=== PATIENT | female | born 1945 | race Caucasian/White ===

== ENCOUNTER 2017-08-04 13:16 | Outpatient (CLI) | payer MEDICARE, OTHER ==
--- NOTE | 2017-08-05 13:17 | PET ---
NUCLEAR MEDICINE FDG PET CT: (Positron Emission Tomography) DATE: 08/04/2017 HISTORY: A 72-year-old female with metastatic lymph node PT CT requested to monitor therapy for possible yanely nge in treatment. COMPARISON: 05/17/2016 TECHNIQUE: IV injection F-18 Fluorodeoxyglucose (FDG) dose: 10.6 mCi. PET and attenuation-correction CT performed from skull base to proximal thighs. FINDINGS: SUV (standard uptake value) numbers given are maximum SUV's: There is a new 2 x 1 cm right subpectoral hypermetabolic lymph node with an SUV of 6.8. Located posterior, inferior, and lateral to that, there is another new finding of a smaller, 1 cm ly mph node, which has greater FDG uptake than contralateral left lymph nodes, but has uptake of 2.5 (w hich is still below the somewhat arbitrary threshold of 3.0). This is at least moderately suspiciou s. The post surgical scar within the right breast is not hypermetabolic (SUV 1.7). Again noted is the left breast implant. There is no hypermetabolic activity within the thoracic cavity, neck, abdomina l cavity, or pelvic cavity, other than diffuse uptake throughout the colon. IMPRESSION: Evidence for new right subpectoral metastatic lymph node. ELVIN Horton POS: YVONNE
== END 2017-08-04 13:17 | disposition home or self-care (01) ==
LOC: PET 13:16
PROVIDERS: ATTEND Internal Medicine Hematology & Oncology
DX: C50.919 Malignant neoplasm of unspecified site of unspecified female breast (principal); C77.9 Secondary and unspecified malignant neoplasm of lymph node, unspecified
CPT/HCPCS: 78815; A9552

== ENCOUNTER 2018-04-01 11:45 | Outpatient (CLI) | payer MEDICARE, OTHER ==
--- NOTE | 2018-04-01 14:34 | PET ---
PET WITH CT SKULL TO MID THIGH: HISTORY: A 72-year-old female with bilateral breast cancer, left-sided in 1995 and right-sided in October 2015 . The patient had a right lumpectomy and a left mastectomy. Exam is requested for restaging. TECHNIQUE: PET scanning with CT attenuation correction is performed from the base of the brain through the proxi mal thighs following the intravenous administration of 10.4 mCi [id number] in the left ware nd. COMPARISON: PET CT of 08/04/17. FINDINGS: There are multiple hypermetabolic right-sided axillary lymph nodes with SUVs of 5.5 at level 1 (previ ously 6.8), 3.7 at level 2 (previously 2.5), and 5.5 at level 3 (new). No emiliano hypermetabolism is s een in the neck, left axilla, anterior mammary, mediastinal, hilar, abdominopelvic lymph nodes. No hypermetabolic pulmonary nodules, liver, adrenal, or skeletal lesions are identified. There is physiologic activity in the GI and tracts and the visualized portions of the brain. The CT scan used for attenuation correction demonstrates no evidence of pleural effusions or ascites. IMPRESSION: Multiple right axillary lymph emiliano metastases with a mixed response to therapy since 08/04/17. POS: YVONNE
== END 2018-04-01 11:46 | disposition home or self-care (01) ==
LOC: PET 11:45
PROVIDERS: ATTEND Internal Medicine Hematology & Oncology
DX: C50.919 Malignant neoplasm of unspecified site of unspecified female breast (principal); C77.8 Secondary and unspecified malignant neoplasm of lymph nodes of multiple regions
CPT/HCPCS: 78815; A9552

== ENCOUNTER 2018-08-19 09:49 | Outpatient (CLI) | payer MEDICARE, OTHER ==
--- NOTE | 2018-08-19 14:06 | PET ---
PET WITH CT SKULL TO MID THIGH: Reference made to 04/01/18. CLINICAL HISTORY: History of bilateral breast cancer. Status post right lumpectomy and left mastectomy. FINDINGS: There is a prominent size region of inflammation of the right lateral and posterior lower chest and a bdominal wall, which is surrounded by subcutaneous edema and there is overlying skin thickening. This region is hypermetabolic with a SUV of 15. An adjacent right pleural effusion is present. There are scattered hypermetabolic lymph nodes involving the neck, chest, and abdomen, with the right axillary node demonstrating SUV of 5.4, right neck hypermetabolic lymph node with 5.1 SUV, and a right retrocr ural lymph node of 2.6 SUV. There is asymmetric increased activity, nonspecific, involving the right hemicolon. Scattered vascular disease is present. IMPRESSION: 1. Mixed response to therapy is indicated, with interval improvement with regard to prior hypermetab olic adenopathy, although interval development of additional hypermetabolic lymph nodes as discussed above. 2. Prominent sized region of inflammation of the right posterior and lateral body wall, which is hyp ermetabolic. Recommend clinical correlation as this could relate to an area of subcutaneous and skin surface inflammation, and/or component of contusion. Follow-up imaging may be obtained as necessary. POS: YVONNE
== END 2018-08-19 09:50 | disposition home or self-care (01) ==
LOC: PET 09:49
PROVIDERS: ATTEND Internal Medicine Hematology & Oncology
DX: C50.919 Malignant neoplasm of unspecified site of unspecified female breast (principal); C77.3 Secondary and unspecified malignant neoplasm of axilla and upper limb lymph nodes
CPT/HCPCS: 78815; A9552

== ENCOUNTER 2019-01-07 09:11 | Outpatient (CLI) | payer MEDICARE, OTHER ==
--- NOTE | 2019-01-07 12:22 | PET ---
FRadionucleotide PET scan with CT attenuation correction HISTORY: Bilateral breast cancer. Restaging. COMPARISON: 08/19/2018. FINDINGS: Physiologic uptake of radiotracer throughout the enteric system and along each urinary trac t, with persistent asymmetric uptake in the transverse colon and right colon. Increased uptake at the posterior aspect of each orbit is symmetric, stable, and possibly related to orbital musculature. A hypermetabolic mass is not evident. Activity associated with the area of inflammation along the posterolateral aspect of the right chest wall now shows a maximum SUV of 7.1 (previously 17.3). Lateral to the right deltoid muscle, a focus of increased radiotracer uptake on the current study gabbie ws a maximum SUV of 3.7. It was not present on the previous exam. Minimal associated soft tissue dens ity within the subcutaneous tissue. The hypermetabolic right axillary lymph node now shows a maximum SUV of 8.8 (previously 8.4). A new h ypermetabolic prepectoral lymph node on the right shows a maximum SUV of 9.0. A new hypermetabolic ly mph node at the subcarinal level of the mediastinum shows a maximum SUV of 6.1. The hypermetabolic ri ght retroperitoneal/. Adrenal lymph node now shows a maximum SUV of 8.0 (previously 3.2). The lesion at the right neck base on the previous study is no longer hypermetabolic. Right pleural ef fusion has resolved. IMPRESSION: Overall worsening of disease, with new hypermetabolic lymph nodes of the prepectoral leve l of the right anterior chest wall and the subcarinal level of the mediastinum. There is also worseni ng of the uptake associated with the right retroperitoneal lymph node. A new hypermetabolic focus within the subcutaneous tissues of the lateral aspect of the right shoulde r may be related to recent injury, possibly injection. Interval resolution of the hypermetabolic right neck base node. Slight improvement of uptake associat ed with the area of inflammation at the right posterolateral chest wall. Right axillary node is stabl e.
== END 2019-01-07 09:12 | disposition home or self-care (01) ==
LOC: PET 09:11
PROVIDERS: ATTEND Internal Medicine Hematology & Oncology
DX: C50.919 Malignant neoplasm of unspecified site of unspecified female breast (principal); J98.8 Other specified respiratory disorders
CPT/HCPCS: 78815; A9552

== ENCOUNTER 2019-01-31 13:31 | Outpatient (CLI) | payer MEDICARE, OTHER ==
--- NOTE | 2019-01-31 14:31 | ULT ---
RIGHT AXILLARY ULTRASOUND: Date: 01/31/19 HISTORY: Right breast cancer with positive axillary lymph node on PET CT. COMPARISON: PET CT dated 01/07/19. TECHNIQUE: Multiplanar Reyna scale and color Doppler images were obtained in a right axillary ultrasound. FINDINGS: A lymph node is seen in the right axilla which corresponds to the abnormality seen on PET CT. This ly mph node measures 1.7 cm in greatest dimension. This is immediately adjacent to the right axillary ve in. The axillary artery is more medial than the vein and more removed from the lymph node. IMPRESSION: The hypermetabolic right axillary lymph node is visualized and is immediately adjacent to the right a xillary vein. POS: HECTOR
== END 2019-01-31 13:32 | disposition home or self-care (01) ==
LOC: BICULT 13:31
PROVIDERS: ATTEND Internal Medicine Hematology & Oncology
DX: C50.011 Malignant neoplasm of nipple and areola, right female breast (principal); C78.1 Secondary malignant neoplasm of mediastinum
CPT/HCPCS: 76999

== ENCOUNTER 2019-02-11 07:15 | Day surgery (SDC) | payer MEDICARE, OTHER ==
[2019-02-07 12:18] VITALS: BMI 35.4
[2019-02-11] MEDS ORDERED: Fentanyl 100 MCG/2 ML VIAL ONE (09:05)
[2019-02-11] MEDS ORDERED: Bupivacaine HCl 0.5%/Epinephrine 1:200,000/PF 30 ml Vial ONE (09:06)
[2019-02-11] MEDS ORDERED: Lidocaine 2% PF 5 ML VIAL ONE (09:06)
[2019-02-11] MEDS ORDERED: PROPOFOL 200 MG/20 ML VIAL ONE (16:05)
[2019-02-11] MEDS ORDERED: PHENYLEPHRINE-NS 100 MCG/ML 10 ML SYRINGE ONE (16:05)
[2019-02-11] MEDS ORDERED: Dexamethasone 20 MG/5 ML VIAL ONE (16:05)
[2019-02-11] MEDS ORDERED: Lidocaine 1% PF 5 ML VIAL ONE (16:05)
[2019-02-11] MEDS ORDERED: ePHEDrine 50 MG/ML VIAL ONE (16:05)
[2019-02-11] MEDS ORDERED: Ondansetron PF 4 MG/2 ML Vial ONE (16:05)
--- NOTE | 2019-02-11 18:08 | PDOC.OP ---
Operative Note - Operative Note Operative Note: PROCEDURE: Right axillary lymph node excision SURGEON: Anne Jackson M.D. DATE: 02/11/2019 PREOPERATIVE DIAGNOSIS: PET positive right axillary mass POSTOPERATIVE DIAGNOSIS: PET positive right axillary mass HISTORY: Patient with triple negative right breast cancer with tumor markers and PET scan suggestive of recurrence. Biopsy of an appearance right axillary lymph node was recommended to confirm recurrence and to obtain additional tumor markers. Due to its location immediately adjacent to the axillary vessels, core biopsy was not felt to be safe so excisional biopsy was recommended. PROCEDURE IN DETAIL: After informed consent was obtained the patient was taken to the operating room and placed in supine position. Anesthesia was administered and she was prepped and draped in the standard sterile fashion. A sterile ultrasound probe was used to identify the hypoechoic mass adjacent to the vessels. This was quite deep in the axilla and due to going through a previously operated field there was concern that it could be very difficult to locate by palpation. Therefore some methylene blue was injected into the soft tissues immediately superficial to the hypoechoic mass. Local anesthesia was infused the skin and subcutaneous tissues surrounding the mass and the previous axillary incision was re-incised. Dissection was carried down toward the mass and the methylene blue stained tissues identified. The mass did become palpable and was able to be grasped and drawn up into the incision and dissected free of the surrounding tissues with difficulty due to extensive fibrosis. The mass did have an appearance consistent with a pathologic lymph node. This was immediately adjacent to the vessels which were seen to be pulsating just posterior to the mass. The mass was excised and sent to pathology and the wound irrigated and examined for hemostasis which was excellent. No additional masses were palpable or visible within the wound although there was extensive fibrosis making palpation somewhat difficult. Local anesthesia was infused for postoperative pain control avoiding the area of the vessels, and the subcutaneous tissues were reapproximated with 3-0 Monocryl suture. The skin was then closed with 4-0 Monocryl suture and Dermabond dressings placed. The patient was taken to recovery in good condition. Estimated blood loss was minimal. There were no complications. Specimen is right axillary mass.
== END 2019-02-11 12:40 | disposition home or self-care (01) ==
LOC: SDC 07:15
PROVIDERS: ATTEND Surgery
PROC: 07B50ZX Excision of Right Axillary Lymphatic, Open Approach, Diagnostic (ICD-10-PCS; principal; 2019-02-11)
DX: C77.3 Secondary and unspecified malignant neoplasm of axilla and upper limb lymph nodes (principal); C50.911 Malignant neoplasm of unspecified site of right female breast; E11.9 Type 2 diabetes mellitus without complications; E78.00 Pure hypercholesterolemia, unspecified; I10 Essential (primary) hypertension; Z79.84 Long term (current) use of oral hypoglycemic drugs; Z79.899 Other long term (current) drug therapy; Z88.1 Allergy status to other antibiotic agents; Z88.2 Allergy status to sulfonamides; Z88.5 Allergy status to narcotic agent; Z17.1 Estrogen receptor negative status [ER-]
CPT/HCPCS: 38525; 38900; 88305; 88341; 88342; 93005; Q9968; 88361; 93010; J0670; J0690; J1100; J2001; J2405; J2704; J3010; J3490

== ENCOUNTER 2019-03-08 13:31 | Outpatient (CLI) | payer MEDICARE, OTHER ==
--- NOTE | 2019-03-08 14:13 | ULT ---
EXAM: Bilateral lower extremity venous duplex: Deep veins evaluated with color Doppler, spectral analysis, and compression. INDICATIONS: Bilateral lower extremity pain and edema. FINDINGS: Deep veins interrogated include common femoral vein, femoral vein, popliteal vein, and post erior tibial vein. Abnormal increased intraluminal echogenicity with diminished flow and reduced compressibility present involving common femoral vein, inferiorly to the level of the posterior tibia l vein within the right lower extremity. No left-sided DVT evident. IMPRESSION: Extensive DVT occupying majority of the right lower extremity deep vein system, the predo minance of which is occlusive. Telephone call findings placed to patient's physician Filomena De La Cruz at time of interpretation. [id number] ho urs.
== END 2019-03-08 13:32 | disposition home or self-care (01) ==
LOC: ULT 13:31
PROVIDERS: ATTEND Internal Medicine Hematology & Oncology
DX: I82.4Z1 Acute embolism and thrombosis of unspecified deep veins of right distal lower extremity (principal); R60.0 Localized edema; M79.604 Pain in right leg; C78.1 Secondary malignant neoplasm of mediastinum; C50.011 Malignant neoplasm of nipple and areola, right female breast
CPT/HCPCS: 36415; 80053; 82248; 83615; 84100; 84550; 86300

== ENCOUNTER 2019-04-19 11:59 | Outpatient (CLI) | payer MEDICARE, OTHER ==
--- NOTE | 2019-04-19 14:24 | PET ---
EXAM: PET/CT HISTORY: History of breast cancer TECHNIQUE: PET scanning with CT attenuation correction was performed from the base of the brain to the proximal thighs following the intravenous administration of 12.3 millicuries [id number]. COMPARISON: PET/CT dated January 07, 2019 FINDINGS: Biodistribution:The biodistribution for the exam appears acceptable. Head and neck: There is appropriate background activity within the brain. No hypermetabolic lymphaden opathy or masses identified. Thorax: There is been interval postsurgical change of the right axillary region and resolution of the previously seen right axillary and right prepectoral hypermetabolic lymph nodes. Mild amount of increased metabolic uptake measuring up to 1.89 SUV is seen within the right axillary fossa likely re lated to prior surgery and therapy. The hypermetabolic activity seen involving the right latissimus dorsi, along the posterior lateral aspect of the right chest wall, has diminished hypermetabolic acti vity, now measuring up to 3.4 where it previously measured up to 5.64. No new hypermetabolic lymphadenopathy or mass is identified. The hypermetabolic subcarinal lymph node has resolved. There i s a small right pleural effusion which is stable. Abdomen and pelvis: There is expected background activity within the GI and systems.Previously see n hypermetabolic retroperitoneal lymph node, adjacent to the IVC, has decreased uptake. The maximum SUV is 1.9 cm, previously it measured 4.65. No new hypermetabolic lymphadenopathy, mass or ascites is present. Osseous structures and skin: Small region of hypermetabolic uptake within the subcutaneous tissues ov erlying the right deltoid is no longer present and may reflect a sequela of prior trauma. Small sclerotic focus within the left ilium without associated hypermetabolic activity is stable likely ref lecting a small bone island. IMPRESSION: Findings consistent with response to therapy. The previously seen hypermetabolic right axillary lymph nodes and prepectoral lymph node is no longer demonstrated. There is postsurgical change within this region likely related to interval lymph node dissection. No residual hypermetabolic lymphadenopathy is evident within this region. There is b een resolution of hypermetabolic lymphadenopathy seen within the subcarinal region and the upper retroperitoneal region within the abdomen. The hypermetabolic activity involving the right latissimus dorsi along the posterior lateral aspect o f the right chest wall has decreased in uptake.
== END 2019-04-19 12:00 | disposition home or self-care (01) ==
LOC: PET 11:59
PROVIDERS: ATTEND Internal Medicine Hematology & Oncology
DX: C50.919 Malignant neoplasm of unspecified site of unspecified female breast (principal); C78.1 Secondary malignant neoplasm of mediastinum; R59.0 Localized enlarged lymph nodes; Z98.890 Other specified postprocedural states
CPT/HCPCS: 78815; A9552

== ENCOUNTER 2019-07-05 11:15 | Outpatient (CLI) | payer MEDICARE, OTHER ==
--- NOTE | 2019-07-05 12:32 | PET ---
EXAM: PET CT skull to mid thigh COMPARISON: None HISTORY: Malignant neoplasm of the right female breast and secondary malignant neoplasm of the medias tinum TECHNIQUE: A PET/CT was performed from the skull to the mid thigh after administration of 10.9 millic uries of F-18 FDG. Evaluation was performed on a I-Stand workstation. FINDINGS: NECK: No areas of hypermetabolic activity CHEST: There is a moderate right pleural effusion. Hypermetabolic activity is seen in the posterior a spect of the fluid collection with a max SUV value of 3.5. There is hypermetabolic activity in the medial aspect of the right pectoralis minor muscle with a max SUV value of 4.4. Persistent activity i s again seen in the right latissimus dorsi muscle which is not masslike. There is a very small area of metabolic activity along the left internal mammary lymph node chain. There is a very minimal CT co rrelate with a tiny nodule measuring 2 to 3 mm in size. Maximum SUV value in this region is 2.3. ABDOMEN/PELVIS: No areas of hypermetabolic activity SKELETON: No areas of hypermetabolic activity CT images used for attenuation correction show the patient is status post left mastectomy and implant reconstruction. IMPRESSION: 1. Moderate right pleural effusion demonstrating hypermetabolic activity is concerning for malignant involvement of the right thoracic cavity. 2. Nonspecific hypermetabolic activity along the right pectoralis minor muscle 3. Tiny internal mammary nodule demonstrating metabolic activity. This was not seen on the prior exam and may be below PET resolution and a reason why the SUV value is only 2.3.
== END 2019-07-05 11:16 | disposition home or self-care (01) ==
LOC: PET 11:15
PROVIDERS: ATTEND Internal Medicine Hematology & Oncology
DX: C79.51 Secondary malignant neoplasm of bone (principal); C50.911 Malignant neoplasm of unspecified site of right female breast; J90 Pleural effusion, not elsewhere classified
CPT/HCPCS: 78815; 80053; 82248; 83615; 84100; 84550; 86300; A9552

== ENCOUNTER 2019-07-07 10:18 | Outpatient (CLI) | payer MEDICARE, OTHER ==
--- NOTE | 2019-07-07 12:15 | RAD ---
PA AND LATERAL CHEST: Date: 07/07/19 HISTORY: Breast cancer, right pleural effusion. FINDINGS: The heart size is enlarged. There is a large right pleural effusion present with associated parenchym al lung changes on the basis of atelectasis. The left lung is clear. IMPRESSION: 1. Very large right pleural effusion with associated atelectatic lung change. 2. Mild cardiomegaly. POS: HECTORH
== END 2019-07-07 10:19 | disposition home or self-care (01) ==
LOC: BICRAD 10:18
PROVIDERS: ATTEND Internal Medicine Hematology & Oncology
DX: C50.011 Malignant neoplasm of nipple and areola, right female breast (principal); C78.1 Secondary malignant neoplasm of mediastinum; J90 Pleural effusion, not elsewhere classified; J98.11 Atelectasis; I51.7 Cardiomegaly
CPT/HCPCS: 71046

== ENCOUNTER 2019-07-12 07:34 | Day surgery (SDC) | payer MEDICARE, OTHER ==
--- NOTE | 2019-07-11 12:36 | HP ---
07/11/2019 HISTORY OF PRESENT ILLNESS: This is an H and P for a thoracentesis. Ms. Palumbo is a very pleasant woman with history of breast cancer. She has recently developed dyspnea on exertion, was found to have a large right-sided pleural effusion. She subsequently was referred for further evaluation. The only complaint is dyspnea on exertion. PAST MEDICAL HISTORY: Remarkable for, 1. Chemo-induced peripheral neuropathy. 2. Diabetes. 3. Hypertension. 4. Lipid disorder. 5. Appendectomy. 6. History of mastectomy. 7. Status post hysterectomy. 8. History of lumpectomy in 2016 on the right. FAMILY HISTORY: Positive for breast cancer. No history of lung disease in early age. SOCIAL HISTORY: Nonsmoker, nondrinker, nondrug user. REVIEW OF SYSTEMS: Ten-point review of systems completed, otherwise negative. PHYSICAL EXAMINATION: GENERAL: She is very pleasant, in no distress. VITAL SIGNS: She is 61 inches tall, 196 pounds. Heart rate is 80, respiratory rate is 18, blood pressure is 145/88. HEENT: Pupils are equal. Sclerae are anicteric. Extraocular movements full. NECK: Supple. No lymphadenopathy. LUNGS: Clear, with the exception of decreased breath sounds nursing home up on the right. HEART: Regular rhythm. S1 and S2 are normal. ABDOMEN: Soft and nontender. EXTREMITIES: Without clubbing, cyanosis, or edema. IMAGING STUDIES: Chest radiograph shows a large right-sided pleural effusion. IMPRESSION: 1. Large pleural effusion on the right, same side as her initial cancer, likely to be metastatic pleural disease. 2. History of deep vein thrombosis, this late spring. I have asked her not to take her Xarelto in the morning. We will do a thoracentesis late morning. Risk of bleeding, infection, lung collapse, and least likely were explained to the patient. She is willing to proceed. This is a 70 minute consult with greater than 50% of the time was spent on the unit with coordination of care. Job ID: [id number] [facility]
[2019-07-12 10:25] LABS: Pleural Fluid, Protein 4.3 g/dL
[2019-07-12 10:52] LABS: RBC Count-Automated (BF) 9504 /cumm; WBC/Nucleated-Auto (BF) 733 uL
[2019-07-12 10:56] LABS: Body Fluid Source Thoracentesis Fluid; Clarity Cloudy/Turbid (Clear)
[2019-07-12 10:57] LABS: BF Color Pink; Tube # 3
[2019-07-12 11:06] LABS: BF Segmented Neutrophils 3 %; Eosinophils 3 %
[2019-07-12 11:07] LABS: Cell Count Non Hematic 64 %; Lymphocytes 30 %
--- NOTE | 2019-07-13 10:35 | OP ---
DATE OF PROCEDURE: 07/12/2019 PROCEDURE: Thoracentesis. Consent was obtained from the patient prior to procedure. Risk of bleeding, infection, and lung collapse were explained. The right posterior hemithorax was cleansed with chlorhexidine. A 22-gauge needle was used to anesthetize the interspace. Fluid was localized with a 22-gauge needle. An 8-Malawian safety catheter was inserted into the pleural space without difficulty. Approximately 1 L of dark yellow pleural fluid was evacuated. No air was aspirated. There were no immediate complications. The catheter was withdrawn and a dressing was applied. Patient was observed and discharged home for close outpatient followup. Job ID: [id number]
== END 2019-07-12 10:00 | disposition home or self-care (01) ==
LOC: SDC 07:34
PROVIDERS: ATTEND Internal Medicine Critical Care Medicine
DX: C50.911 Malignant neoplasm of unspecified site of right female breast (principal); J91.0 Malignant pleural effusion; I10 Essential (primary) hypertension; E11.42 Type 2 diabetes mellitus with diabetic polyneuropathy; G62.0 Drug-induced polyneuropathy; Z80.3 Family history of malignant neoplasm of breast; Z88.1 Allergy status to other antibiotic agents; Z88.5 Allergy status to narcotic agent; Z88.8 Allergy status to other drugs, medicaments and biological substances
CPT/HCPCS: 32554; 82945; 83615; 84157; 85060; 87070; 87116; 87205; 87206; 88112; 88305; 89051; J1642

== ENCOUNTER 2019-07-26 12:30 | Outpatient (CLI) | payer MEDICARE, OTHER ==
--- NOTE | 2019-07-26 12:56 | RAD ---
2 views of chest: 07/26/2019 COMPARISON: 07/07/2019 HISTORY: Right pleural effusion, breast cancer FINDINGS: The left lung appears clear. No pneumothorax is noted on either side. There is dense opacit y involving the inferior half of the right hemithorax, evidence of a moderate/large right pleural effusion with associated consolidation/collapse of the right middle and right lower lobe. The volume of pleural fluid has mildly increased when compared to the 07/07/2019 examination. IMPRESSION: Moderate/large right pleural effusion. This has slightly increased in volume when compare d to the 07/07/2019 exam.
== END 2019-07-26 12:31 | disposition home or self-care (01) ==
LOC: BICRAD 12:30
PROVIDERS: ATTEND Internal Medicine Hematology & Oncology
DX: J90 Pleural effusion, not elsewhere classified (principal); C78.1 Secondary malignant neoplasm of mediastinum; C50.919 Malignant neoplasm of unspecified site of unspecified female breast
CPT/HCPCS: 71046; 80053

== ENCOUNTER 2019-08-08 08:32 | Day surgery (SDC) | payer MEDICARE, OTHER ==
[2019-08-05 13:57] VITALS: BMI 33.5
--- NOTE | 2019-08-08 07:17 | CON ---
DATE OF CONSULTATION: HISTORY OF PRESENT ILLNESS: Ms. Palumbo is a very pleasant woman, who has a recurrent malignant right pleural effusion and is being brought in to hospital for right PleurX catheter placement. PAST MEDICAL HISTORY: 1. Peripheral neuropathy. 2. Diabetes mellitus. 3. Hypertension. 4. Dyslipidemia. 5. History of breast cancer. 6. DVT, on Xarelto. 7. Malignant right pleural effusion, recurrent. PAST SURGICAL HISTORY: 1. Appendectomy. 2. Mastectomy. 3. Hysterectomy. 4. Lumpectomy. FAMILY HISTORY: Positive for breast cancer. SOCIAL HISTORY: She does not use tobacco or alcohol. PHYSICAL EXAMINATION: GENERAL: This is a very pleasant woman with no distress. VITAL SIGNS: Heart rate 80 and blood pressure is 145/88. LUNGS: Have diminished breath sounds on the right. HEART: Rhythm is regular without murmur. ABDOMEN: Soft and nontender. X-RAY: Chest x-ray shows a large right pleural effusion. ASSESSMENT AND PLAN: She has held her Xarelto since Thursday and brought into the hospital for an outpatient PleurX catheter placement for recurrent malignant right pleural effusions. Job ID: [id number]
[2019-08-08] MEDS ORDERED: Lidocaine 1% (PF) 30 ML VIAL ONE (10:19)
[2019-08-08] MEDS ORDERED: Midazolam HCl 2 mg/2 ml Vial ONE (10:20)
[2019-08-08] MEDS ORDERED: Ondansetron ODT 4 MG TAB ONE (10:20)
[2019-08-08] MEDS ORDERED: Fentanyl 100 MCG/2 ML VIAL ONE (10:21)
--- NOTE | 2019-08-08 12:53 | OP ---
DATE OF PROCEDURE: 08/08/2019 PREOPERATIVE DIAGNOSIS: Recurrent malignant right pleural effusion. POSTOPERATIVE DIAGNOSIS: Recurrent malignant right pleural effusion. PROCEDURE PERFORMED: Right PleurX catheter placement. ANESTHESIA: 1% lidocaine for local with IV sedation, provided by Dr. Rod Alvarenga. ESTIMATED BLOOD LOSS: Minimal. FINDINGS: 3100 mL of clear straw-colored fluid was evacuated. DESCRIPTION OF PROCEDURE: After consent was obtained, the patient was brought to the operating room, placed in supine position on the operating table. Appropriate monitoring was placed. IV sedation was begun. Right chest wall was prepped and draped in usual sterile fashion. The chest wall was anesthetized with 1% lidocaine. Percutaneous access to the pleural cavity was obtained and a guidewire passed. The catheter was tunneled from the anterior midclavicular line to the guidewire access site. The guidewire tract was dilated and a Peel-Away sheath placed. Catheter was passed through the Peel-Away sheath. Peel-Away sheath was then removed. Access site was closed with a 0 silk suture. The catheter was secured with 0 silk suture. The catheter was connected to suction and 3100 mL of pleural fluid was evacuated. Sterile dressings were applied. The patient was awakened, transferred to the recovery area in stable condition. Job ID: [id number]
== END 2019-08-08 12:04 | disposition home or self-care (01) ==
LOC: SDC 08:32
PROVIDERS: ATTEND Thoracic Surgery (Cardiothoracic Vascular Surgery)
PROC: 0WH933Z Insertion of Infusion Device into Right Pleural Cavity, Percutaneous Approach (ICD-10-PCS; principal; 2019-08-08)
DX: C50.911 Malignant neoplasm of unspecified site of right female breast (principal); J91.0 Malignant pleural effusion; E11.9 Type 2 diabetes mellitus without complications; I10 Essential (primary) hypertension; G62.9 Polyneuropathy, unspecified; Z79.01 Long term (current) use of anticoagulants; Z79.84 Long term (current) use of oral hypoglycemic drugs; Z79.899 Other long term (current) drug therapy; Z88.1 Allergy status to other antibiotic agents; Z88.5 Allergy status to narcotic agent; Z90.11 Acquired absence of right breast and nipple
CPT/HCPCS: C1729; J0690; J2001; J2250; J3010; Q0162

== ENCOUNTER 2019-09-27 13:21 | Outpatient (CLI) | payer MEDICARE, OTHER ==
--- NOTE | 2019-09-27 14:59 | PET ---
PET CT: HISTORY: 74-year-old female with breast cancer with bone mets and malignant pleural effusion. Exam r equested for restaging. TECHNIQUE: PET scanning with CT attenuation correction was performed from the base of the brain to t he proximal thighs following the intravenous administration of 12.4 mCi F18-FDG in the left hand. COMPARISON: PET CT of 07/05/19. FINDINGS: There are new hypermetabolic lymph nodes involving the right axilla (SUV 5.7), subcarinal (SUV 4.6), and left hilar (SUV 4). There is continued mild FDG localization in the left intramammary lymph node with a SUV of 2 (previou sly 2.3). The increased uptake in the posterior aspect of the moderate right pleural effusion is again seen wit h maximum SUV of 4.8 (previously 3.5). No hypermetabolic liver, adrenal, or skeletal lesions are seen. The CT scan used for attenuation correction demonstrates changes of left mastectomy and implant recon struction. No left-sided pleural effusion or ascites seen. IMPRESSION: Interval worsening of metastatic disease since 07/05/19. POS: YVONNE
== END 2019-09-27 13:22 | disposition home or self-care (01) ==
LOC: PET 13:21
PROVIDERS: ATTEND Internal Medicine Hematology & Oncology
DX: C50.919 Malignant neoplasm of unspecified site of unspecified female breast (principal); C79.51 Secondary malignant neoplasm of bone
CPT/HCPCS: 78815; A9552; 36415; 80053

== ENCOUNTER 2019-11-14 14:20 | Outpatient (CLI) | payer MEDICARE, OTHER ==
--- NOTE | 2019-11-14 15:04 | ULT ---
Ultrasound Doppler duplex venous right upper extremity: DATE: 11/14/2019 HISTORY: 75-year-old female with right upper extremity pain. TECHNIQUE: Grayscale, color-flow, and spectral analysis, of all major veins of right upper extremities. Compress ion and release applied to all veins except the subclavian. FINDINGS: There is demonstration of blood flow, with no thrombosis, of the internal jugular, subclavian, axilla ry, brachial, radial, ulnar, basilic, and cephalic, veins. IMPRESSION: Negative. No thrombosis of right upper extremity veins.
== END 2019-11-14 14:21 | disposition home or self-care (01) ==
LOC: ULT 14:20
PROVIDERS: ATTEND Internal Medicine Hematology & Oncology
DX: I82.90 Acute embolism and thrombosis of unspecified vein (principal); M79.601 Pain in right arm; R60.0 Localized edema; M79.89 Other specified soft tissue disorders
CPT/HCPCS: 80053; 82248; 83615; 84100; 84443; 84550

== ENCOUNTER → 2019-11-25 | Day surgery (SDC) | payer MEDICARE, OTHER ==
[2019-11-24 14:04] VITALS: BMI 32.9
[~2019-11-25] MED LIST: Bacitracin Zinc Ointment 30 gm TUBE ONE; Bupivacaine PF 0.5% 30 ML VIAL ONE; EPINEPHrine 1 MG/ML AMP ONE; Fentanyl 100 MCG/2 ML VIAL ONE; Midazolam HCl 2 mg/2 ml Vial ONE; PROPOFOL 200 MG/20 ML VIAL ONE
--- NOTE | 2019-11-25 09:49 | OP ---
DATE OF PROCEDURE: 11/25/2019 PREOPERATIVE DIAGNOSIS: Nonfunctional right PleurX catheter, need for long-term IV access for chemotherapy. PROCEDURES PERFORMED: 1. Removal of right PleurX catheter. 2. Left subclavian MediPort - single. This is a single low-profile port placed in the subclavian position. ANESTHESIA: 1% lidocaine for local with IV sedation provided by Dr. Iram Bennett. DESCRIPTION OF PROCEDURE: After consent was obtained, the patient was brought to the operating room and placed in supine position on the operating room table. Appropriate central line and monitors were placed. IV sedation was begun. Right chest wall was prepped and draped in usual sterile fashion. The cuff was dissected free sharply from the surrounding tissues and the PleurX catheter removed. Single stitch placed in the exit site and sterile dressing applied. Left chest wall was prepped and draped in usual sterile fashion. Chest wall was anesthetized with 1% lidocaine. Percutaneous access to the left subclavian vein was obtained. This was confirmed with single-shot fluoroscopy. A pocket was created on the anterior chest wall and the catheter tunneled to the guidewire exit site. The catheter was then tunneled. The port was placed under the skin and secured with 4-0 Prolene suture. The catheter was measured under fluoroscopy and cut to appropriate length. Using fluoroscopic guidance, the Peel-Away sheath was placed. Catheter was passed through the Peel-Away sheath and sheath removed. The catheter aspirated and flushed nicely. Followup x-ray showed good positioning of the port and catheter. Wound was then closed in layers and Dermabond applied to the skin. The patient tolerated the procedure well, transferred to the recovery area in stable condition. Job ID: [id number]
== END ==
LOC: SDC 05:52
PROVIDERS: ATTEND Thoracic Surgery (Cardiothoracic Vascular Surgery)
PROC: 02HV33Z Insertion of Infusion Device into Superior Vena Cava, Percutaneous Approach (ICD-10-PCS; principal; 2019-11-25)
PROC: B518ZZA Fluoroscopy of Superior Vena Cava, Guidance (ICD-10-PCS; 2019-11-25)
PROC: 0BPQX0Z Removal of Drainage Device from Pleura, External Approach (ICD-10-PCS; 2019-11-25)
DX: C80.1 Malignant (primary) neoplasm, unspecified (principal); J91.0 Malignant pleural effusion; T85.9XXA Unspecified complication of internal prosthetic device, implant and graft, initial encounter; I10 Essential (primary) hypertension; E11.42 Type 2 diabetes mellitus with diabetic polyneuropathy; E78.5 Hyperlipidemia, unspecified; Z79.01 Long term (current) use of anticoagulants; Z79.84 Long term (current) use of oral hypoglycemic drugs; Z79.899 Other long term (current) drug therapy; Z85.3 Personal history of malignant neoplasm of breast; Z86.718 Personal history of other venous thrombosis and embolism; Z88.1 Allergy status to other antibiotic agents; Z88.5 Allergy status to narcotic agent
CPT/HCPCS: 32552; 36561; 93005; C1788; 93010; J0171; J0690; J1642; J2250; J2704; J3010; S0020

== ENCOUNTER 2019-12-07 08:12 | Outpatient (CLI) | payer MEDICARE, OTHER ==
--- NOTE | 2019-12-07 08:46 | RAD ---
EXAM: Two views chest PROVIDED CLINICAL HISTORY: Dyspnea. COMPARISON: 07/26/2019 FINDINGS: Left subclavian Mediport catheter is now noted in place with tip overlying the expected location of p roximal SVC. Cardiac silhouette and pulmonary vasculature are within normal limits. There has been interval decrease in large right pleural effusion noted on prior study. There is persistence of a rig ht pleural effusion with parenchymal changes right lung base which could be related to volume loss or infiltrate. There is a masslike opacity seen in the right midlung zone which may represent pseudot umor secondary to fluid within the fissure. A tiny left pleural effusion and atelectasis is present. Also appears to be postsurgical changes right axillary region. Left breast prosthesis is pre sent. No other interval change. IMPRESSION: 1. Decrease in moderately large right pleural effusion seen prior exam, but pleural effusion on the r ight does persist which could be partially loculated. In addition, there is a oval-shaped masslike opacity in the right midlung zone which may represent pseudotumor secondary to loculated fluid in the fissure. Mild patchy density seen at the right lung base with associated interstitial densities. These findings could be related to volume loss, but infiltrate/pneumonia cannot be excluded. 2. Tiny left pleural effusion and atelectasis..
== END 2019-12-07 08:13 | disposition home or self-care (01) ==
LOC: RAD 08:12
PROVIDERS: ATTEND Internal Medicine Critical Care Medicine
DX: R06.00 Dyspnea, unspecified (principal); J90 Pleural effusion, not elsewhere classified; J98.11 Atelectasis; J98.4 Other disorders of lung; R91.8 Other nonspecific abnormal finding of lung field
CPT/HCPCS: 71046

== ENCOUNTER 2019-12-20 10:28 | Emergency (ER) | payer MEDICARE, OTHER ==
[2019-12-20] MEDS ORDERED: Morphine 4 MG/ML VIAL ONE (10:57)
[2019-12-20 11:17] LABS: #Lymphocytes 0.5 thou/uL (1.20-3.40); #Monocytes 0.3 thou/uL (0.11-0.59); #Neutrophils 4.3 thou/uL (1.40-6.50); %Basophils 0.2 % (0.0-1.0); %Eosinophils 0.2 % (0.0-10.0); %Lymphocytes 9.7 % (21.0-51.0); %Monocytes 6.6 % (0.0-10.0); %Neutrophils 83.2 % (42.0-75.0); Hemoglobin 8.7 g/dL (12.0-16.0); MDiff Complete? YES; Mean Corpuscular HGB CONC 32.8 g/dL (32.0-36.0); Mean Corpuscular Hemoglobin 31.7 pg (27.0-31.0); Mean Corpuscular Volume 96.5 fL (78.0-98.0); Mean Platelet Volume 10.2 fL (7.4-10.4); Platelet Count 119 thou/uL (130-400); Platelet Morphology Comment Appears Decreased; Polychromasia SLIGHT = 2-3 cells (100X) (0-2/hpf); RBC Distribution Width 17.5 % (11.5-14.5); Red Blood Cell (RBC) Count 2.74 mill/uL (4.20-5.40); Tear Drops SLIGHT = 2-5 cells (100X) (0-1/hpf); White Blood Cell (WBC) Count 5.1 thou/uL (4.8-10.8)
[2019-12-20 11:26] LABS: ALT (SGPT) 9 U/L (8-55); AST (SGOT) 25 U/L (5-34); Albumin 3.4 g/dL (3.4-4.8); Alkaline Phosphatase 93 U/L (40-110); Anion Gap 17 mmol/L (10-20); BUN (Urea Nitrogen) 13 mg/dL (9.8-20.1); Bilirubin, Total 1.8 mg/dL (0.2-1.2); Calc. Creatinine Clearance 0 mL/min (70-130); Calcium 8.8 mg/dL (7.8-10.44); Carbon Dioxide 24 mmol/L (23-31); Chloride 102 mmol/L (98-107); Estimated GFR-MDRD 84; Globulin 2.5 g/dL (2.4-3.5); Glucose 126 mg/dL (83-110); Lipase 18 U/L (8-78); Potassium 3.4 mmol/L (3.5-5.1); Protein, Total 5.9 g/dL (6.0-8.3); Sodium 140 mmol/L (136-145)
--- NOTE | 2019-12-20 12:20 | CT ---
CT abdomen and pelvis with IV contrast HISTORY: Abdomen pain. Breast cancer with metastatic disease. COMPARISON: PET/CT 09/27/2019. FINDINGS: Bilateral pleural fluid, including loculated fluid on the right, with compressive atelectas is, is similar in appearance to the previous exam. Left breast prosthesis partially visualized. Parenchymal scarring of the inferior aspect of the right breast is similar in appearance to the prior study. Now centered within and superficial to the lower margin of the right latissimus muscle are multiple l obular hyperdense oval and rounded nodules. The largest measures up to 1.7 cm length on the axial images. These nodules were not evident on the most recent PET/CT images. There was stranding within t he adjacent fat. Ill-defined soft tissue density within the anterior aspect of the intra-abdominal fat, including a fo lacie collection just deep to the right abdominal wall musculature measuring up to 4.0 cm length, is evidence of carcinomatosis and is similar in appearance to the prior CT images. Small amount of free fluid is present within the dependent portion of the pelvis. Bone island at the left iliac bone is stable. No evidence of bowel obstruction. IMPRESSION: Evidence of metastatic disease, including peritoneal carcinomatosis, is again demonstrate d. There are are new hyperdense soft tissue nodules within and superficial to the right lower latissimus dorsi musculature. This could be related to worsening of metastatic disease, iatrogenic, o r inflammatory process. Pleural fluid, abdominal fluid, and other findings are stable.
[2019-12-20] MEDS ORDERED: Iopamidol-370 76% 500 ML 1 ML ONE (14:31)
== END 2019-12-20 13:06 | disposition home or self-care (01) ==
LOC: ERS 10:28
DX: R10.9 Unspecified abdominal pain (principal); E11.9 Type 2 diabetes mellitus without complications; I10 Essential (primary) hypertension; Z79.01 Long term (current) use of anticoagulants; Z79.899 Other long term (current) drug therapy; Z79.1 Long term (current) use of non-steroidal anti-inflammatories (NSAID); Z79.84 Long term (current) use of oral hypoglycemic drugs
CPT/HCPCS: 36415; 74177; 80053; 83605; 83690; 85025; 87040; 96361; 96374; J1642; J2270; Q9967

== ENCOUNTER 2020-01-04 11:29 | Outpatient (CLI) | payer MEDICARE, OTHER ==
[2020-01-04] MEDS ORDERED: Magnevist 469MG/ML 20 ML VIAL ONE (14:00)
--- NOTE | 2020-01-04 14:11 | MRI ---
MRI OF BRAIN WITH AND WITHOUT CONTRAST: INDICATION: Malignant neoplasm of breast. Metastatic disease. Assess for brain metastasis. COMPARISON: No comparison. FINDINGS: Ventricles have normal size and position. There is no evidence of restricted diffusion. No evidence of mass or edema seen on FLAIR sequence. No abnormal enhancement identified. Mucous retention cysts are seen in the floor of both maxillary sinuses measuring up to 2.5 cm on the left. The cerebral arteries and dural venous sinuses demonstrate flow voids. IMPRESSION: 1. No acute intracranial abnormality. No evidence of metastatic disease identified. 2. Mucous retention cyst seen in both maxillary sinuses. POS: [facility]
== END 2020-01-04 11:30 | disposition home or self-care (01) ==
LOC: MRI 11:29
PROVIDERS: ATTEND Internal Medicine Hematology & Oncology
DX: C50.011 Malignant neoplasm of nipple and areola, right female breast (principal); C78.1 Secondary malignant neoplasm of mediastinum; H53.8 Other visual disturbances; R20.0 Anesthesia of skin; J34.1 Cyst and mucocele of nose and nasal sinus
CPT/HCPCS: 70553; A9579

== ENCOUNTER 2020-01-05 07:30 | Outpatient (CLI) | payer MEDICARE, OTHER ==
--- NOTE | 2020-01-05 10:14 | PET ---
Exam: PET SCAN WITH CT ATTENUATION CORRECTION: COMPARISON: 09/27/2019. HISTORY: Malignant neoplasm of nipple and areola, right breast. Secondary malignant neoplasm of media stinum. Evaluate for response to therapy. TECHNIQUE: PET scan with CT attenuation correction was performed from the base of the brain to the pr oximal thighs following the intravenous administration of 11.9 mCi of [id number]. FINDINGS: Head and neck: Interval development of a hypermetabolic lymph node in the right neck with a maximum S UV of 6.1. Chest: Increase in the overall number of hypermetabolic foci in the right axilla. There is a hyperme tabolic focus in the right axilla that has a maximum SUV of 8.6. Additional hypermetabolic focus in the right axilla measures 4.3, 5.9 and 11.6. The number of hypermetabolic foci has increased. There i s also increased FDG localization involving the right trapezius muscle with induration of the adjacent fat. Possibility of metastatic disease involving the soft tissue/musculature cannot be exclu ded. Maximum SUV is 8.4. There is interval development of extensive hypermetabolic activity involving the majority of the right pleural margin. Maximum SUV ranges between 7.[address] used f or attenuation correction does demonstrate loculated components of nonhypermetabolic pleural fluid. Hypermetabolic activity in the right hilum with a maximum SUV of 4.6 compatible with hypermetabolic l ymph nodes. Additional hypermetabolic subcarinal lymph node with a maximum SUV of 9.5, and paratracheal lymph node with a maximum SUV of 6.6 is noted. Abdomen/Pelvis: No abnormal FDG localization. Nonspecific hypermetabolic lymph node in the right ingu inal lesion with maximum SUV of 2.2. Osseous structures: No evidence of abnormal FDG localization. IMPRESSION: Evidence for progression of disease. Worsening pleural-based hypermetabolic activity, soft tissue hyp ermetabolic activity, right lower neck and axillary lymphadenopathy with associated hypermetabolic activity. Transcribed Date/Time: 01/05/2020 10:51 AM
== END 2020-01-05 07:31 | disposition home or self-care (01) ==
LOC: PET 07:30
PROVIDERS: ATTEND Internal Medicine Hematology & Oncology
DX: C50.919 Malignant neoplasm of unspecified site of unspecified female breast (principal); C78.1 Secondary malignant neoplasm of mediastinum; R59.0 Localized enlarged lymph nodes
CPT/HCPCS: 78815; A9552

== ENCOUNTER 2020-01-19 12:32 | Outpatient (CLI) | payer MEDICARE, OTHER | END 2020-01-19 12:33 | disposition home or self-care (01) | LOC: ULT 12:32 | PROVIDERS: ATTEND Internal Medicine Hematology & Oncology | DX: Z51.11 Encounter for antineoplastic chemotherapy (principal); C50.011 Malignant neoplasm of nipple and areola, right female breast; C78.1 Secondary malignant neoplasm of mediastinum; I08.1 Rheumatic disorders of both mitral and tricuspid valves; R18.8 Other ascites; Z79.899 Other long term (current) drug therapy | CPT/HCPCS: 93306 ==